=== PATIENT | male | born 1980 | race Two or more races ===

== ENCOUNTER 2021-07-05 07:22 | Emergency (ER) | payer MEDICARE, MEDICAID ==
[~2021-07-05] VITALS: Ht 180.3 cm; Wt 81.6 kg
[~2021-07-05 07:22] MED LIST: LAMO200T2
[2021-07-05] MEDS ORDERED: SODIUM CHLORIDE 0.9% 1,000 ML IVB ONE (08:30)
[2021-07-05] MEDS ORDERED: LORazepam 2MG/ML-1ML VIAL IV ONE (09:15)
[2021-07-05] MEDS ORDERED: LORazepam 2MG/ML-1ML VIAL ONE (09:15)
[2021-07-05 09:36] LABS: Basophils # (auto) 0 10 ^3/uL (0-0.2); Basophils % (auto) 0.4 % (0.0-2.0); Eosinophils # (auto) 0.1 10 ^3/uL (0-0.8); Hematocrit 39.9 % (41.0-53.0); Lymphocytes # (auto) 0.8 10 ^3/uL (0.4-5.4); Lymphocytes % (auto) 13.1 % (10.0-50.0); Mean Corpuscular Hemoglobin 32.6 pg (28.0-32.0); Mean Corpuscular Volume 93.2 fL (80.0-100.0); Monocytes # (auto) 0.5 10 ^3/uL (0-1.3); Monocytes % (auto) 7.7 % (0.0-12.0); Neutrophils # (auto) 4.8 10 ^3/uL (1.6-8.6); Neutrophils % (auto) 77.8 % (37.0-80.0); Red Blood Cells 4.28 10^6/uL (4.5-5.90); Red Cell Distribution Width 12.5 % (11.8-14.3); White Blood Cell 6.1 10^3/uL (4.4-10.8)
[2021-07-05 09:42] LABS: Albumin 3.8 g/dL (3.4-5.0); Magnesium 2.6 mg/dL (1.6-2.6); Potassium 4.2 mmol/L (3.5-5.1)
[2021-07-05 09:47] LABS: BUN/Creatinine Ratio 12.8; Bilirubin, Total 0.3 mg/dL (0.2-1.0); Total Protein 6.5 g/dL (6.4-8.2)
[2021-07-05 16:00] VITALS: BP 10/69
== END 2021-07-05 17:57 | disposition home or self-care (01) ==
LOC: ER 07:22 → EDUNIT# 07:22 → EDBD 07:22 → ER 17:57
DX: G40.909 Epilepsy, unspecified, not intractable, without status epilepticus (principal); R51.9 Headache, unspecified; F17.210 Nicotine dependence, cigarettes, uncomplicated
CPT/HCPCS: 36415; 80053; 83735; 85025; 93005; 96361; 96374; 99285; J2060; J7030

== ENCOUNTER 2022-07-02 08:57 | Emergency (ER) | payer MEDICARE, MEDICAID ==
[~2022-07-02] VITALS: Ht 180.3 cm; Wt 86.0 kg
[2022-07-02 09:25] VITALS: BP 126/89
[2022-07-02] MEDS ORDERED: KETOROLAC TROMETH 60MG/2ML VIAL IM ONE (10:00)
[2022-07-02] MEDS ORDERED: ACET-1080 PO (10:04)
[2022-07-02] MEDS ORDERED: METH750T22 PO (10:04)
== END 2022-07-02 10:29 | disposition home or self-care (01) ==
LOC: ER 08:57
DX: S42.142A Displaced fracture of glenoid cavity of scapula, left shoulder, initial encounter for closed fracture (principal); F17.210 Nicotine dependence, cigarettes, uncomplicated; X58.XXXA Exposure to other specified factors, initial encounter; Y93.89 Activity, other specified; Y92.89 Other specified places as the place of occurrence of the external cause; Y99.8 Other external cause status
CPT/HCPCS: 73030; 96372; 99283; J1885

== ENCOUNTER 2022-07-17 16:14 | Emergency (ER) | payer MEDICARE, MEDICAID ==
[~2022-07-17] VITALS: Ht 180.3 cm; Wt 87.8 kg
[~2022-07-17 16:14] MED LIST changes: +ACET-1080 PO; +METH750T22 PO
[2022-07-17] MEDS ORDERED: TRAM-297 PO (18:39)
[2022-07-17] MEDS ORDERED: CEPH-510 PO (18:39)
[2022-07-17] MEDS ORDERED: ACET325T82 PO (18:41)
[2022-07-17 19:40] VITALS: BP 138/82
== END 2022-07-17 19:51 | disposition home or self-care (01) ==
LOC: ER 16:14
DX: S61.201A Unspecified open wound of left index finger without damage to nail, initial encounter (principal); F17.210 Nicotine dependence, cigarettes, uncomplicated; Z79.899 Other long term (current) drug therapy; W26.0XXA Contact with knife, initial encounter; Y93.89 Activity, other specified; Y92.89 Other specified places as the place of occurrence of the external cause; Y99.8 Other external cause status
CPT/HCPCS: 11730; 12001

== ENCOUNTER 2022-07-26 13:23 | Emergency (ER) | payer MEDICARE, MEDICAID ==
[~2022-07-26] VITALS: Ht 182.9 cm; Wt 78.0 kg
[~2022-07-26 13:23] MED LIST changes: +ACET325T82 PO; +CEPH-510 PO
[2022-07-26] MEDS ORDERED: LORazepam 2MG/ML-1ML VIAL IV ONE (13:30)
[2022-07-26] MEDS ORDERED: ONDANSETRON HCL 4 MG/2 ML VIAL IV ONE (13:30)
[2022-07-26] MEDS ORDERED: MORPHINE SULFATE 4 MG/ML SYR/VIAL IV ONE (13:30)
[2022-07-26 14:19] LABS: Basophils # (auto) 0 10 ^3/uL (0-0.2); Basophils % (auto) 0.2 % (0.0-2.0); Eosinophils # (auto) 0 10 ^3/uL (0-0.8); Eosinophils % (auto) 0.1 % (0.0-7.0); Hematocrit 43.1 % (41.0-53.0); Hemoglobin 15.3 g/dL (13.5-17.5); Lymphocytes # (auto) 0.7 10 ^3/uL (0.4-5.4); Lymphocytes % (auto) 6.5 % (10.0-50.0); Mean Corpuscular Hemoglobin 33.3 pg (28.0-32.0); Mean Corpuscular Hgb Conc. 35.5 g/dL (32.0-36.0); Mean Corpuscular Volume 93.6 fL (80.0-100.0); Monocytes # (auto) 0.5 10 ^3/uL (0-1.3); Neutrophils # (auto) 8.9 10 ^3/uL (1.6-8.6); Neutrophils % (auto) 88.2 % (37.0-80.0); Nucleated Red Blood Cells % 0.1 %; Red Blood Cells 4.61 10^6/uL (4.5-5.90); Red Cell Distribution Width 12.2 % (11.8-14.3); White Blood Cell 10.1 10^3/uL (4.4-10.8)
[2022-07-26 14:24] LABS: Albumin 4.8 g/dL (3.4-5.0); Anion Gap 10 (5-15); Blood Urea Nitrogen 14 mg/dL (7-18); Calcium 9.3 mg/dL (8.5-10.1); Carbon Dioxide 19 mmol/L (21-32); Chloride 109 mmol/L (98-107); Glucose 98 mg/dL (74-106); Potassium 4.5 mmol/L (3.5-5.1); Sodium 138 mmol/L (136-145)
[2022-07-26 14:25] LABS: Alanine Aminotransferase 23 U/L (16-61); Aspartate Aminotransferase 10 U/L (15-37); BUN/Creatinine Ratio 8.7; Blood Alcohol < 3.0 mg/dL (0-5); GFR African American 61 mL/min; GFR Non-African American 51 mL/min
[2022-07-26 14:28] LABS: Alkaline Phosphatase 50 U/L (45-117); Bilirubin, Total 0.5 mg/dL (0.2-1.0); Total Protein 7.9 g/dL (6.4-8.2)
[2022-07-26] MEDS ORDERED: LORA0.5T20 PO (16:27)
[2022-07-26 17:32] VITALS: BP 121/81
== END 2022-07-26 17:35 | disposition home or self-care (01) ==
LOC: ER 13:23 → EDBD 13:23 → ER 17:34
DX: G40.909 Epilepsy, unspecified, not intractable, without status epilepticus (principal); F12.10 Cannabis abuse, uncomplicated
CPT/HCPCS: 36415; 70450; 80053; 80320; 85025; 96374; 96375; 99284; J2060; J2270; J2405

== ENCOUNTER 2022-10-16 09:38 | Emergency (ER) | payer MEDICARE, OTHER ==
[~2022-10-16] VITALS: Ht 177.8 cm; Wt 63.6 kg
[~2022-10-16 09:38] MED LIST changes: +LORA0.5T20 PO
[2022-10-16] MEDS ORDERED: LORazepam 2MG/ML-1ML VIAL ONE (10:22)
[2022-10-16] MEDS ORDERED: SODIUM CHLORIDE 0.9% 500 ML IVB ONE (11:00)
[2022-10-16] MEDS ORDERED: SODIUM CHLORIDE 0.9% 1,000 ML IV ONE (11:00)
[2022-10-16] MEDS ORDERED: LORazepam 2MG/ML-1ML VIAL IV ONE ×4 (11:15→18:00)
[2022-10-16 11:16] LABS: Potassium 3.5 mmol/L (3.5-5.1)
[2022-10-16 11:23] LABS: Albumin 4.9 g/dL (3.4-5.0); BUN/Creatinine Ratio 5.6; Bilirubin, Total 0.2 mg/dL (0.2-1.0); Calcium 9.4 mg/dL (8.5-10.1); Total Protein 8.7 g/dL (6.4-8.2)
[2022-10-16 13:27] LABS: Basophils # (auto) 0 10 ^3/uL (0-0.2); Basophils % (auto) 0.2 % (0.0-2.0); Eosinophils # (auto) 0.2 10 ^3/uL (0-0.8); Hematocrit 48.7 % (41.0-53.0); Hemoglobin 15.8 g/dL (13.5-17.5); Lymphocytes # (auto) 4.4 10 ^3/uL (0.4-5.4); Lymphocytes % (auto) 24.4 % (10.0-50.0); Mean Corpuscular Hemoglobin 32.7 pg (28.0-32.0); Mean Corpuscular Hgb Conc. 32.4 g/dL (32.0-36.0); Mean Corpuscular Volume 100.8 fL (80.0-100.0); Monocytes # (auto) 0.8 10 ^3/uL (0-1.3); Monocytes % (auto) 4.4 % (0.0-12.0); Neutrophils # (auto) 12.5 10 ^3/uL (1.6-8.6); Nucleated Red Blood Cells % 0.1 %; Red Blood Cells 4.84 10^6/uL (4.5-5.90); Red Cell Distribution Width 12.7 % (11.8-14.3); White Blood Cell 17.9 10^3/uL (4.4-10.8)
[2022-10-16 15:44] LABS: Urine Bacteria NONE SEEN /hpf (None Seen); Urine Blood Negative /uL (Negative); Urine Hyaline Cast FEW /lpf (0 - 2); Urine Mucus FEW (None Seen); Urine Specific Gravity 1.012 (1.001-1.035); Urine WBC 1 /hpf (0 - 3)
[2022-10-16 15:57] LABS: Alcohol, Urine < 3.0 mg/dL (0-10); Amphetamine Screen, Urine NEGATIVE (NEGATIVE); Barbiturate Scree,Urine NEGATIVE (NEGATIVE); Benzodiazephine Screen, Urine NEGATIVE (NEGATIVE); Cannabinoid Screen, Urine POSITIVE (NEGATIVE); Cocaine Screen, Urine NEGATIVE (NEGATIVE); Opiate Scree,Urine NEGATIVE (NEGATIVE); Phencyclidine Screen, Urine NEGATIVE (NEGATIVE)
[2022-10-16] MEDS ORDERED: ACETAMINOPHEN 325 MG TAB PO ONE (18:00)
[2022-10-16] MEDS ORDERED: LAMO200T2 PO (18:03)
[2022-10-16] MEDS ORDERED: hydrALAZINE HCL 20 MG/ML VL IV PRN (18:15)
[2022-10-16] MEDS ORDERED: HYDROcodone-ACET 5/325MG TAB PO ONE (21:15)
[2022-10-16] MEDS ORDERED: LACTATED RINGER'S 1,000 ML IV ONE (21:45)
[2022-10-16 23:16] LABS: Basophils # (auto) 0 10 ^3/uL (0-0.2); Basophils % (auto) 0.3 % (0.0-2.0); Eosinophils # (auto) 0 10 ^3/uL (0-0.8); Hematocrit 40.7 % (41.0-53.0); Hemoglobin 13.9 g/dL (13.5-17.5); Lymphocytes # (auto) 0.5 10 ^3/uL (0.4-5.4); Lymphocytes % (auto) 5.4 % (10.0-50.0); Mean Corpuscular Hemoglobin 32.3 pg (28.0-32.0); Mean Corpuscular Hgb Conc. 34.1 g/dL (32.0-36.0); Mean Corpuscular Volume 94.7 fL (80.0-100.0); Monocytes # (auto) 0.4 10 ^3/uL (0-1.3); Monocytes % (auto) 4.5 % (0.0-12.0); Neutrophils # (auto) 8.9 10 ^3/uL (1.6-8.6); Neutrophils % (auto) 89.8 % (37.0-80.0); Red Cell Distribution Width 12.4 % (11.8-14.3); White Blood Cell 9.9 10^3/uL (4.4-10.8)
[2022-10-16 23:24] LABS: Albumin 3.8 g/dL (3.4-5.0); BUN/Creatinine Ratio 8.1; Calcium 8.8 mg/dL (8.5-10.1); Potassium 4.2 mmol/L (3.5-5.1)
[2022-10-16 23:27] LABS: Bilirubin, Total 0.4 mg/dL (0.2-1.0); Total Protein 6.7 g/dL (6.4-8.2)
[2022-10-16 23:36] VITALS: BP 142/96
== END 2022-10-16 23:45 | disposition admitted as inpatient to this hospital (09) ==
LOC: EDBD 09:38 → ER 09:38
DX: G40.801 Other epilepsy, not intractable, with status epilepticus (principal); I10 Essential (primary) hypertension; E11.21 Type 2 diabetes mellitus with diabetic nephropathy; F12.90 Cannabis use, unspecified, uncomplicated; D75.89 Other specified diseases of blood and blood-forming organs
CPT/HCPCS: 36415; 36600; 70450; 70486; 71045; 80053; 80307; 81001; 82805; 82962; 83735; 83880; 85025; 93005; 96361; 96365; 96367; 96375; 99291; J1953; J2060; J7030; J7040; J7060

== ENCOUNTER → 2022-11-22 | Emergency (ER) | payer MEDICARE, OTHER ==
[~2022-11-22] VITALS: Ht 180.3 cm; Wt 83.0 kg
[~2022-11-22] MED LIST changes: +CYCL-839 PO; +IBUP600T28 PO; +KETOROLAC TROMETH 30 MG/ML 1ML VIAL IM ONE; -LAMO200T2; +LAMO200T2 PO; +MORPHINE SULFATE 4 MG/ML SYR/VIAL IM ONE; +ONDANSETRON ODT 4 MG TAB PO ONE
[2022-11-22 14:25] VITALS: BP 148/101
== END | disposition home or self-care (01) ==
LOC: ER 10:23
DX: S46.912A Strain of unspecified muscle, fascia and tendon at shoulder and upper arm level, left arm, initial encounter (principal); Z79.1 Long term (current) use of non-steroidal anti-inflammatories (NSAID); Z79.899 Other long term (current) drug therapy; W18.39XA Other fall on same level, initial encounter; Y93.89 Activity, other specified; Y92.89 Other specified places as the place of occurrence of the external cause; Y99.8 Other external cause status
CPT/HCPCS: 73030; 96372; 99283; J1885; J2270; Q0162

== ENCOUNTER → 2022-12-14 | Day surgery (SDC) | payer MEDICARE, OTHER ==
[~2022-12-14] VITALS: Ht 180.3 cm; Wt 82.0 kg
[~2022-12-14] MED LIST changes: +BUPIVACAINE HCL 50 ML ONE; +EPINEPHrine HCL 1 MG/1 ML AMP ONE; +HYDR1TAB97 PO; +HYDROmorphone HCL 2 MG/ML VL/or syr IV PRN; -KETOROLAC TROMETH 30 MG/ML 1ML VIAL IM ONE; +KETOROLAC TROMETH 30 MG/ML 1ML VIAL IV ONE; +LABETALOL HCL 5 MG/ML 4ML SYRINGE IV PRN; +LIDOCAINE 2% JELLY 11ml (GLYDO) ONE; +MIDAZOLAM HCL 2MG/2ML 2ml VIAL (1mg/ml) IV PRN; -MORPHINE SULFATE 4 MG/ML SYR/VIAL IM ONE; +MORPHINE SULFATE 4 MG/ML SYR/VIAL IV PRN; +ONDANSETRON HCL 4 MG/2 ML VIAL IV PRN; -ONDANSETRON ODT 4 MG TAB PO ONE; +ROCURONIUM 10MG/ML 10ML VIAL IV ONE; +SUCCINYLCHOLINE CHLORIDE 20 MG/ML 10ML VIAL IV ONE; +ceFAZolin 1GM/50ML 100 ML IV ONE; +ePHEDrine SULFATE 50 MG/ML AMP IV PRN
[2022-12-14 10:31] LABS: Basophils # (auto) 0 10 ^3/uL (0-0.2); Basophils % (auto) 0.3 % (0.0-2.0); Eosinophils # (auto) 0.1 10 ^3/uL (0-0.8); Eosinophils % (auto) 0.9 % (0.0-7.0); Hematocrit 41.6 % (41.0-53.0); Hemoglobin 14.4 g/dL (13.5-17.5); Lymphocytes # (auto) 1.3 10 ^3/uL (0.4-5.4); Lymphocytes % (auto) 21.1 % (10.0-50.0); Mean Corpuscular Hemoglobin 32.4 pg (28.0-32.0); Mean Corpuscular Hgb Conc. 34.5 g/dL (32.0-36.0); Mean Corpuscular Volume 93.9 fL (80.0-100.0); Monocytes # (auto) 0.3 10 ^3/uL (0-1.3); Monocytes % (auto) 4.6 % (0.0-12.0); Neutrophils # (auto) 4.4 10 ^3/uL (1.6-8.6); Neutrophils % (auto) 73.1 % (37.0-80.0); Nucleated Red Blood Cells % 0.1 %; Red Blood Cells 4.43 10^6/uL (4.5-5.90); Red Cell Distribution Width 12.5 % (11.8-14.3)
[2022-12-14 10:37] LABS: BUN/Creatinine Ratio 10.7 (10.0-20.0); Calcium 9.5 mg/dL (8.5-10.1); Potassium 4.3 mmol/L (3.5-5.1)
[2022-12-14 10:51] LABS: INR 0.96 (0.9-1.15); Partial Thromboplastin Time 27.3 sec (24.6-33.4)
[2022-12-14 17:50] VITALS: BP 142/100
== END | disposition home or self-care (01) ==
LOC: ER 05:06 → SUR 11:00 → ER 12:36
PROVIDERS: ATTEND Orthopaedic Surgery Sports Medicine
DX: M19.012 Primary osteoarthritis, left shoulder (principal); S43.432A Superior glenoid labrum lesion of left shoulder, initial encounter; M94.212 Chondromalacia, left shoulder; M89.012 Algoneurodystrophy, left shoulder; M67.814 Other specified disorders of tendon, left shoulder; T84.84XA Pain due to internal orthopedic prosthetic devices, implants and grafts, initial encounter; Y83.1 Surgical operation with implant of artificial internal device as the cause of abnormal reaction of the patient, or of later complication, without mention of misadventure at the time of the procedure; Z88.8 Allergy status to other drugs, medicaments and biological substances; Z79.1 Long term (current) use of non-steroidal anti-inflammatories (NSAID); Z79.891 Long term (current) use of opiate analgesic; X58.XXXA Exposure to other specified factors, initial encounter; Y93.89 Activity, other specified; Y92.89 Other specified places as the place of occurrence of the external cause; Y99.8 Other external cause status; Z20.822 Contact with and (suspected) exposure to COVID-19
CPT/HCPCS: 20680; 29823; 36415; 73020; 76000; 80048; 85025; 85610; 85730; 99285; J0330; J0690; J3490; A4565; J0171

== ENCOUNTER 2023-04-08 23:23 | Emergency (ER) | payer MEDICARE, OTHER ==
[~2023-04-08] VITALS: Ht 177.8 cm; Wt 80.0 kg
[~2023-04-08 23:23] MED LIST changes: -BUPIVACAINE HCL 50 ML ONE; -EPINEPHrine HCL 1 MG/1 ML AMP ONE; -HYDROmorphone HCL 2 MG/ML VL/or syr IV PRN; +IBUP1TAB5 PO; -IBUP600T28 PO; -KETOROLAC TROMETH 30 MG/ML 1ML VIAL IV ONE; -LABETALOL HCL 5 MG/ML 4ML SYRINGE IV PRN; -LIDOCAINE 2% JELLY 11ml (GLYDO) ONE; +LORA-1121 PO; -LORA0.5T20 PO; +METH-1182 PO; -METH750T22 PO; -MIDAZOLAM HCL 2MG/2ML 2ml VIAL (1mg/ml) IV PRN; -MORPHINE SULFATE 4 MG/ML SYR/VIAL IV PRN; -ONDANSETRON HCL 4 MG/2 ML VIAL IV PRN; -ROCURONIUM 10MG/ML 10ML VIAL IV ONE; -SUCCINYLCHOLINE CHLORIDE 20 MG/ML 10ML VIAL IV ONE; -ceFAZolin 1GM/50ML 100 ML IV ONE; -ePHEDrine SULFATE 50 MG/ML AMP IV PRN
[2023-04-08 23:41] VITALS: BP 123/96; PULSE 90; RESP 16; O2SAT 99
[2023-04-09 00:06] LABS: Basophils # (auto) 0 10 ^3/uL (0-0.2); Basophils % (auto) 0.7 % (0.0-2.0); Eosinophils # (auto) 0.1 10 ^3/uL (0-0.8); Hemoglobin 14.7 g/dL (13.5-17.5); Lymphocytes # (auto) 3.3 10 ^3/uL (0.4-5.4); Lymphocytes % (auto) 48.6 % (10.0-50.0); Mean Corpuscular Hemoglobin 32.8 pg (28.0-32.0); Mean Corpuscular Volume 93.6 fL (80.0-100.0); Monocytes # (auto) 0.4 10 ^3/uL (0-1.3); Monocytes % (auto) 5.5 % (0.0-12.0); Neutrophils # (auto) 2.9 10 ^3/uL (1.6-8.6); Neutrophils % (auto) 43.2 % (37.0-80.0); Nucleated Red Blood Cells % 0.2 %; Red Blood Cells 4.49 10^6/uL (4.5-5.90); Red Cell Distribution Width 12.8 % (11.8-14.3); White Blood Cell 6.8 10^3/uL (4.4-10.8)
[2023-04-09 00:18] LABS: Albumin 4.6 g/dL (3.4-5.0); Calcium 8.8 mg/dL (8.5-10.1); Potassium 3.7 mmol/L (3.5-5.1)
[2023-04-09 00:21] LABS: Bilirubin, Total 0.4 mg/dL (0.2-1.0); Total Protein 7.7 g/dL (6.4-8.2)
== END 2023-04-09 02:49 | disposition left against medical advice (07) ==
LOC: ER 23:23 → EDBD 23:23 → ER 04-09 02:00
DX: F10.10 Alcohol abuse, uncomplicated (principal); M54.2 Cervicalgia; Z53.21 Procedure and treatment not carried out due to patient leaving prior to being seen by health care provider
CPT/HCPCS: 36415; 70450; 72125; 80053; 80320; 85025

== ENCOUNTER 2023-06-19 09:21 | Emergency (ER) | payer MEDICARE, OTHER ==
[~2023-06-19] VITALS: Ht 177.8 cm; Wt 86.5 kg
[2023-06-19 10:00] VITALS: BP 135/92; PULSE 72; RESP 16; TEMP 98.5; O2SAT 98
[2023-06-19] MEDS ORDERED: DexAMETHasone SOD PHOS 10MG/1ML VIAL INJ IM ONE (10:30)
[2023-06-19] MEDS ORDERED: KETOROLAC TROMETH 30 MG/ML 1ML VIAL IM ONE (10:30)
[2023-06-19] MEDS ORDERED: IBUP1TAB5 PO (11:23)
[2023-06-19] MEDS ORDERED: ACET60TA10 PO (11:23)
== END 2023-06-19 11:35 | disposition home or self-care (01) ==
LOC: ER 09:21
DX: S83.8X1A Sprain of other specified parts of right knee, initial encounter (principal); F15.90 Other stimulant use, unspecified, uncomplicated; Z88.8 Allergy status to other drugs, medicaments and biological substances; Z79.1 Long term (current) use of non-steroidal anti-inflammatories (NSAID); Z79.899 Other long term (current) drug therapy; X50.1XXA Overexertion from prolonged static or awkward postures, initial encounter; Y93.89 Activity, other specified; Y92.89 Other specified places as the place of occurrence of the external cause; Y99.8 Other external cause status
CPT/HCPCS: 73562; 96372; 99284; J1100; J1885

== ENCOUNTER 2023-08-25 08:52 | Emergency (ER) | payer MEDICARE, OTHER ==
[~2023-08-25] VITALS: Ht 180.3 cm; Wt 87.0 kg
[~2023-08-25 08:52] MED LIST changes: +ACET60TA10 PO
[2023-08-25] MEDS ORDERED: LORazepam 2MG/ML-1ML VIAL IV ONE (09:00)
[2023-08-25 09:36] LABS: Basophils # (auto) 0.1 10 ^3/uL (0-0.2); Basophils % (auto) 0.5 % (0.0-2.0); Eosinophils # (auto) 0.1 10 ^3/uL (0-0.8); Eosinophils % (auto) 0.6 % (0.0-7.0); Hematocrit 47.5 % (41.0-53.0); Hemoglobin 15.7 g/dL (13.5-17.5); Lymphocytes % (auto) 25.6 % (10.0-50.0); Mean Corpuscular Hemoglobin 32.3 pg (28.0-32.0); Mean Corpuscular Volume 97.8 fL (80.0-100.0); Monocytes # (auto) 0.6 10 ^3/uL (0-1.3); Monocytes % (auto) 5.1 % (0.0-12.0); Neutrophils # (auto) 7.9 10 ^3/uL (1.6-8.6); Neutrophils % (auto) 68.2 % (37.0-80.0); Nucleated Red Blood Cells % 0.1 %; Red Blood Cells 4.86 10^6/uL (4.5-5.90); Red Cell Distribution Width 12.6 % (11.8-14.3); White Blood Cell 11.6 10^3/uL (4.4-10.8)
[2023-08-25] MEDS ORDERED: LORazepam 2MG/ML-1ML VIAL ONE (09:48)
[2023-08-25 09:55] LABS: Alanine Aminotransferase 22 U/L (7-40); Albumin 5.4 g/dL (3.2-4.8); Alkaline Phosphatase 51 U/L (46-116); Anion Gap 24 (5-15); Aspartate Aminotransferase 11 U/L (13-40); BUN/Creatinine Ratio 7.1 (10.0-20.0); Blood Urea Nitrogen 11 mg/dL (9-23); Calcium 10.2 mg/dL (8.5-10.1); Carbon Dioxide 11 mmol/L (20-30); Chloride 106 mmol/L (98-107); Glucose 117 mg/dL (74-106); Sodium 141 mmol/L (136-145)
[2023-08-25 09:56] LABS: Bilirubin, Total 0.4 mg/dL (0.2-1.0)
[2023-08-25 10:25] VITALS: PULSE 96; RESP 17; O2SAT 97
[2023-08-25 13:58] LABS: Magnesium 2.9 mg/dL (1.6-2.6)
[2023-08-25 14:21] LABS: Urine Bacteria NONE SEEN /hpf (None Seen); Urine Blood Negative /uL (Negative); Urine Clarity Clear (Clear); Urine Protein, UAD Negative (Negative); Urine Specific Gravity 1.012 (1.001-1.035); Urine Urobilinogen Normal (Negative); Urine WBC <1 /hpf (0 - 3)
[2023-08-25 14:24] LABS: Urine Color Yellow (Yellow)
[2023-08-25 14:39] LABS: Amphetamine Screen, Urine Neg (NEGATIVE)
[2023-08-25 14:40] LABS: Barbiturate Scree,Urine Neg (NEGATIVE); Benzodiazephine Screen, Urine Neg (NEGATIVE); Cocaine Screen, Urine Neg (NEGATIVE); Opiate Scree,Urine Neg (NEGATIVE); Phencyclidine Screen, Urine Neg (NEGATIVE)
[2023-08-25 14:41] LABS: Cannabinoid Screen, Urine Pos (NEGATIVE)
[2023-08-25 15:29] LABS: Base Excess -7.6 mmol/L (-2.0-2.0)
[2023-08-25] MEDS ORDERED: ACETAMINOPHEN 325 MG TAB PO ONE (16:15)
[2023-08-25 19:45] VITALS: PULSE 98; RESP 20; O2SAT 98
[2023-08-25] MEDS ORDERED: levETIRAcetam 500 MG TAB PO ONE (19:45)
[2023-08-25] MEDS ORDERED: ONDANSETRON ODT 4 MG TAB PO ONE (19:45)
[2023-08-25] MEDS ORDERED: HYDROcodone-ACET 10/325MG TAB PO ONE (19:45)
[2023-08-26] MEDS ORDERED: KEP500T PO (00:49)
[2023-08-26] MEDS ORDERED: LAMO200T2 PO (00:49)
[2023-08-26] MEDS ORDERED: LORA-1121 PO (00:49)
[2023-08-26 02:00] VITALS: BP 120/77; PULSE 98; RESP 16; O2SAT 100
== END 2023-08-26 02:25 | disposition home or self-care (01) ==
LOC: EDBD 08:52 → ER 08:52
DX: G40.909 Epilepsy, unspecified, not intractable, without status epilepticus (principal); E87.20 Acidosis, unspecified; F12.10 Cannabis abuse, uncomplicated; N18.9 Chronic kidney disease, unspecified
CPT/HCPCS: 36415; 36600; 70450; 80053; 80307; 81001; 82805; 83735; 85025; 96374; 99285; J2060; J7030

== ENCOUNTER 2023-09-25 09:01 | Emergency (ER) | payer MEDICARE, OTHER ==
[~2023-09-25] VITALS: Ht 180.3 cm; Wt 88.9 kg
[~2023-09-25 09:01] MED LIST changes: +KEP500T PO
[2023-09-25] MEDS ORDERED: LEVE500T40 PO (10:11)
[2023-09-25 10:17] VITALS: BP 127/86; PULSE 74; RESP 18; TEMP 97.7; O2SAT 95
== END 2023-09-25 10:11 | disposition home or self-care (01) ==
LOC: ER 09:01
DX: G40.909 Epilepsy, unspecified, not intractable, without status epilepticus (principal); Z76.0 Encounter for issue of repeat prescription

== ENCOUNTER 2023-10-26 10:43 | Emergency (ER) | payer MEDICARE, OTHER ==
[~2023-10-26] VITALS: Ht 182.9 cm; Wt 86.4 kg
[~2023-10-26 10:43] MED LIST changes: +LEVE500T40 PO
[2023-10-26 11:12] VITALS: BP 121/88; PULSE 78; RESP 16; TEMP 98; O2SAT 97
[2023-10-26] MEDS ORDERED: levETIRAcetam 500 MG TAB PO ONE (11:45)
[2023-10-26] MEDS ORDERED: KEP500T PO (11:46)
== END 2023-10-26 12:10 | disposition home or self-care (01) ==
LOC: ER 10:43
DX: R56.9 Unspecified convulsions (principal); F15.90 Other stimulant use, unspecified, uncomplicated; Z76.0 Encounter for issue of repeat prescription; Z79.899 Other long term (current) drug therapy; Z88.8 Allergy status to other drugs, medicaments and biological substances

== ENCOUNTER 2023-11-29 07:36 | Inpatient (IN) | payer MEDICARE, OTHER ==
[~2023-11-29] VITALS: Ht 180.3 cm; Wt 81.8 kg
[2023-11-29 08:00] VITALS: PULSE 109; RESP 16; O2SAT 96
[2023-11-29 08:15] LABS: Basophils # (auto) 0.1 10 ^3/uL (0-0.2); Basophils % (auto) 0.6 % (0.0-2.0); Eosinophils # (auto) 0.2 10 ^3/uL (0-0.8); Eosinophils % (auto) 1.8 % (0.0-7.0); Hemoglobin 15.5 g/dL (13.5-17.5); Lymphocytes # (auto) 3.1 10 ^3/uL (0.4-5.4); Lymphocytes % (auto) 30.2 % (10.0-50.0); Mean Corpuscular Volume 97.2 fL (80.0-100.0); Monocytes # (auto) 0.5 10 ^3/uL (0-1.3); Monocytes % (auto) 4.7 % (0.0-12.0); Neutrophils # (auto) 6.4 10 ^3/uL (1.6-8.6); Neutrophils % (auto) 62.7 % (37.0-80.0); Red Blood Cells 4.84 10^6/uL (4.5-5.90); Red Cell Distribution Width 12.8 % (11.8-14.3); White Blood Cell 10.1 10^3/uL (4.4-10.8)
[2023-11-29] MEDS: SODIUM CHLORIDE 0.9% 1,000 ML IV ONE (08:15)
[2023-11-29 08:23] LABS: Chloride 108 mmol/L (98-107); Potassium 4.9 mmol/L (3.5-5.1); Sodium 139 mmol/L (136-145)
[2023-11-29 08:29] LABS: BUN/Creatinine Ratio 8.4 (10.0-20.0); Blood Urea Nitrogen 12 mg/dL (9-23); Glucose 128 mg/dL (74-106)
[2023-11-29] MEDS: levETIRAcetam 1000 mg/100ml 100 ML IV ONE (08:33)
[2023-11-29] MEDS: MORPHINE SULFATE INJ 2 MG/ml SYRG IV ONE ×2 (08:34→12:49)
[2023-11-29] MEDS: ONDANSETRON HCL 4 MG/2 ML VIAL IV ONE (08:34)
[2023-11-29 09:05] LABS: Anion Gap 19 (5-15); Carbon Dioxide 12 mmol/L (20-30)
[2023-11-29] MEDS ORDERED: MORPHINE SULFATE INJ 2 MG/ml SYRG IV PRN (12:00)
[2023-11-29] MEDS ORDERED: DOCUSATE SOD 100 MG CAP PO PRN (12:00)
[2023-11-29] MEDS ORDERED: ONDANSETRON HCL 4 MG/2 ML VIAL IV PRN (12:00)
[2023-11-29] MEDS: SODIUM CHLORIDE 0.9% 1,000 ML IV SCH (13:41)
[2023-11-29] MEDS: ACETAMINOPHEN 325 MG TAB PO ONE (16:49)
[2023-11-29] MEDS: LORazepam 2MG/ML-1ML VIAL IV PRN (16:58)
[2023-11-29 19:30] VITALS: PULSE 78; RESP 16; O2SAT 97
[2023-11-29] MEDS: levETIRAcetam 1000 mg/100ml 100 ML IV SCH (21:42)
[2023-11-29] MEDS ORDERED: LORazepam 2MG/ML-1ML VIAL IV PRN (23:30)
[2023-11-30 00:40] VITALS: BP 135/94; PULSE 82; RESP 20; TEMP 98.5; O2SAT 97
[2023-11-30 05:00] VITALS: BP 128/82; PULSE 84; RESP 18; TEMP 97.9; O2SAT 97
[2023-11-30 06:21] LABS: Basophils # (auto) 0 10 ^3/uL (0-0.2); Basophils % (auto) 0.3 % (0.0-2.0); Eosinophils # (auto) 0 10 ^3/uL (0-0.8); Eosinophils % (auto) 0.5 % (0.0-7.0); Hematocrit 38.9 % (41.0-53.0); Hemoglobin 13.6 g/dL (13.5-17.5); Lymphocytes # (auto) 1.8 10 ^3/uL (0.4-5.4); Lymphocytes % (auto) 23.8 % (10.0-50.0); Mean Corpuscular Hemoglobin 32.4 pg (28.0-32.0); Mean Corpuscular Hgb Conc. 34.9 g/dL (32.0-36.0); Mean Corpuscular Volume 92.9 fL (80.0-100.0); Monocytes # (auto) 0.4 10 ^3/uL (0-1.3); Monocytes % (auto) 5.3 % (0.0-12.0); Neutrophils # (auto) 5.2 10 ^3/uL (1.6-8.6); Neutrophils % (auto) 70.1 % (37.0-80.0); Red Blood Cells 4.19 10^6/uL (4.5-5.90); Red Cell Distribution Width 12.5 % (11.8-14.3); White Blood Cell 7.4 10^3/uL (4.4-10.8)
[2023-11-30 06:36] LABS: Albumin 4.4 g/dL (3.2-4.8); Alkaline Phosphatase 42 U/L (46-116); Anion Gap 7 (5-15); Aspartate Aminotransferase < 8 U/L (13-40); BUN/Creatinine Ratio 8.2 (10.0-20.0); Bilirubin, Total 0.7 mg/dL (0.2-1.0); Blood Urea Nitrogen 8 mg/dL (9-23); Calcium 9.2 mg/dL (8.5-10.1); Carbon Dioxide 21 mmol/L (20-30); Chloride 110 mmol/L (98-107); Glucose 88 mg/dL (74-106); Potassium 3.9 mmol/L (3.5-5.1); Sodium 138 mmol/L (136-145); Total Protein 6.2 g/dL (5.7-8.2)
[2023-11-30 06:47] LABS: Alanine Aminotransferase < 9 U/L (7-40)
[2023-11-30] MEDS ORDERED: LEVE500T40 PO (07:30)
[2023-11-30] MEDS ORDERED: LAMO200T2 PO (07:30)
[2023-11-30 08:30] VITALS: BP 114/77; PULSE 87; RESP 17; TEMP 98.5; O2SAT 96
[2023-11-30] MEDS: levETIRAcetam 500 MG TAB PO SCH (09:53)
[2023-11-30] MEDS: lamoTRIgine 100 MG TAB PO SCH (09:53)
[2023-11-30 10:19] VITALS: BP 114/77; PULSE 87; RESP 17; TEMP 98.5; O2SAT 96
[2023-11-30 12:20] VITALS: TEMP 36.9
[2023-11-30 12:30] VITALS: BP 147/89; PULSE 89; RESP 17; TEMP 98.2; O2SAT 95
[2023-12-01] MEDS ORDERED: LEVE500T40 PO (08:42)
== END 2023-11-30 15:57 | disposition left against medical advice (07) | DRG 100 ==
LOC: EDBD 07:36 → ER 07:36 → OVERFLOW 11:55 → CENTRAL 23:54
PROVIDERS: ADMIT Internal Medicine; ATTEND Internal Medicine
DX: G40.409 Other generalized epilepsy and epileptic syndromes, not intractable, without status epilepticus (principal); N17.0 Acute kidney failure with tubular necrosis; Z79.899 Other long term (current) drug therapy; Z53.29 Procedure and treatment not carried out because of patient's decision for other reasons
CPT/HCPCS: 36415; 70450; 80048; 80053; 85025; 96361; 96365; 96366; 96375; 96376; 99291; G0378; J2405

== ENCOUNTER 2023-12-01 08:18 | Emergency (ER) | payer MEDICARE, OTHER ==
[~2023-12-01] VITALS: Ht 348 cm; Wt 82.0 kg
[~2023-12-01 08:18] MED LIST changes: -ACET325T82 PO; -CEPH-510 PO; -KEP500T PO
[2023-12-01 08:39] VITALS: BP 134/94; PULSE 90; RESP 18; TEMP 98; O2SAT 98
[2023-12-01] MEDS ORDERED: LEVE500T40 PO (08:42)
[2023-12-01] MEDS: levETIRAcetam 500 MG TAB PO ONE (08:48)
== END 2023-12-01 09:12 | disposition home or self-care (01) ==
LOC: ER 08:18
DX: R56.9 Unspecified convulsions (principal); F12.10 Cannabis abuse, uncomplicated; Z76.0 Encounter for issue of repeat prescription; Z88.6 Allergy status to analgesic agent

== ENCOUNTER 2024-02-02 08:17 | Inpatient (IN) | payer MEDICARE, MEDICAID ==
[~2024-02-02] VITALS: Ht 180.3 cm; Wt 80.4 kg
[2024-02-02 09:00] VITALS: PULSE 74; RESP 12; O2SAT 99
[2024-02-02] MEDS: levETIRAcetam 1000 mg/100ml 100 ML IV ONE (10:19)
[2024-02-02] MEDS: lamoTRIgine 100 MG TAB PO ONE (10:20)
[2024-02-02] MEDS: HYDROcodone-ACET 5/325MG TAB PO ONE (10:20)
[2024-02-02 10:27] LABS: Basophils # (auto) 0 10 ^3/uL (0-0.2); Basophils % (auto) 0.5 % (0.0-2.0); Eosinophils # (auto) 0.1 10 ^3/uL (0-0.8); Eosinophils % (auto) 1.8 % (0.0-7.0); Hematocrit 43.1 % (41.0-53.0); Lymphocytes # (auto) 1.8 10 ^3/uL (0.4-5.4); Lymphocytes % (auto) 31.1 % (10.0-50.0); Mean Corpuscular Hemoglobin 32.4 pg (28.0-32.0); Mean Corpuscular Hgb Conc. 34.7 g/dL (32.0-36.0); Mean Corpuscular Volume 93.2 fL (80.0-100.0); Monocytes # (auto) 0.4 10 ^3/uL (0-1.3); Monocytes % (auto) 6.8 % (0.0-12.0); Neutrophils # (auto) 3.5 10 ^3/uL (1.6-8.6); Neutrophils % (auto) 59.8 % (37.0-80.0); Nucleated Red Blood Cells % 0.1 %; Red Blood Cells 4.63 10^6/uL (4.5-5.90); Red Cell Distribution Width 12.7 % (11.8-14.3); White Blood Cell 5.8 10^3/uL (4.4-10.8)
[2024-02-02 10:31] LABS: Anion Gap 7 (5-15); Carbon Dioxide 25 mmol/L (20-30); Chloride 107 mmol/L (98-107); Sodium 139 mmol/L (136-145)
[2024-02-02 10:32] LABS: Calcium 10.4 mg/dL (8.5-10.1)
[2024-02-02 10:36] LABS: Glucose 99 mg/dL (74-106)
[2024-02-02 10:37] LABS: BUN/Creatinine Ratio 6.7 (10.0-20.0); Blood Urea Nitrogen 8 mg/dL (9-23)
[2024-02-02] MEDS ORDERED: ONDANSETRON HCL 4 MG/2 ML VIAL IV PRN (11:15)
[2024-02-02] MEDS ORDERED: LORazepam 2MG/ML-1ML VIAL IV PRN (11:15)
[2024-02-02] MEDS: SODIUM CHLORIDE 0.9% 1,000 ML IV SCH (11:39)
[2024-02-02 14:28] VITALS: BP 155/96; PULSE 69; RESP 18; TEMP 98.7; O2SAT 99
[2024-02-02 14:36] VITALS: PULSE 69; RESP 18; O2SAT 99
[2024-02-02] MEDS: MORPHINE SULFATE INJ 2 MG/ml SYRG IV PRN (15:11)
[2024-02-02 15:59] VITALS: BP 129/92; PULSE 66; RESP 18; TEMP 97.9; O2SAT 97
[2024-02-02 20:28] LABS: Urine Bacteria None Seen /hpf (None Seen); Urine Blood Negative /uL (Negative); Urine Clarity Clear (Clear); Urine Color Light-Yellow (Yellow); Urine Protein, UAD Negative (Negative); Urine Urobilinogen Normal (Negative); Urine WBC None Seen /hpf (0 - 3)
[2024-02-02 20:41] LABS: Amphetamine Screen, Urine Neg (NEGATIVE)
[2024-02-02 20:42] LABS: Barbiturate Scree,Urine Neg (NEGATIVE); Benzodiazephine Screen, Urine Neg (NEGATIVE); Cocaine Screen, Urine Neg (NEGATIVE); Opiate Scree,Urine Neg (NEGATIVE)
[2024-02-02 20:43] LABS: Cannabinoid Screen, Urine Pos (NEGATIVE); Phencyclidine Screen, Urine Neg (NEGATIVE)
[2024-02-02] MEDS: lamoTRIgine 100 MG TAB PO SCH (21:52)
[2024-02-02 22:00] VITALS: BP 126/83; PULSE 68; RESP 17; TEMP 98.4; O2SAT 97
[2024-02-02] MEDS ORDERED: LAMOTRIGINE 200 MG PO SCH (22:00)
[2024-02-02] MEDS: levETIRAcetam 1000 mg/100ml 100 ML IV SCH (22:09)
[2024-02-03] VITALS (7 sets, daily range): BP systolic 112–157; BP diastolic 65–101; PULSE 64–81; RESP 16–20; TEMP 97.7–98.7; O2SAT 95–100
[2024-02-03 06:04] LABS: Basophils # (auto) 0 10 ^3/uL (0-0.2); Basophils % (auto) 0.5 % (0.0-2.0); Eosinophils # (auto) 0.2 10 ^3/uL (0-0.8); Eosinophils % (auto) 2.7 % (0.0-7.0); Hematocrit 41.4 % (41.0-53.0); Hemoglobin 14.3 g/dL (13.5-17.5); Lymphocytes # (auto) 1.9 10 ^3/uL (0.4-5.4); Lymphocytes % (auto) 32.3 % (10.0-50.0); Mean Corpuscular Hemoglobin 32.5 pg (28.0-32.0); Mean Corpuscular Hgb Conc. 34.4 g/dL (32.0-36.0); Mean Corpuscular Volume 94.5 fL (80.0-100.0); Monocytes # (auto) 0.4 10 ^3/uL (0-1.3); Monocytes % (auto) 7.4 % (0.0-12.0); Neutrophils # (auto) 3.3 10 ^3/uL (1.6-8.6); Neutrophils % (auto) 57.1 % (37.0-80.0); Red Blood Cells 4.39 10^6/uL (4.5-5.90); Red Cell Distribution Width 12.8 % (11.8-14.3); White Blood Cell 5.7 10^3/uL (4.4-10.8)
[2024-02-03 06:26] LABS: Alanine Aminotransferase 13 U/L (7-40); Albumin 4.4 g/dL (3.2-4.8); Alkaline Phosphatase 44 U/L (46-116); Anion Gap 8 (5-15); Aspartate Aminotransferase 10 U/L (13-40); BUN/Creatinine Ratio 5.2 (10.0-20.0); Bilirubin, Total 0.8 mg/dL (0.2-1.0); Blood Urea Nitrogen 6 mg/dL (9-23); Calcium 9.7 mg/dL (8.5-10.1); Carbon Dioxide 24 mmol/L (20-30); Chloride 108 mmol/L (98-107); Glucose 89 mg/dL (74-106); Potassium 4.1 mmol/L (3.5-5.1); Sodium 140 mmol/L (136-145); Total Protein 6.7 g/dL (5.7-8.2)
[2024-02-03] MEDS: ACETAMINOPHEN/CODEINE#3 (300/30mg) TAB PO PRN (14:42)
[2024-02-04 00:54] VITALS: BP 105/62; PULSE 70; RESP 17; TEMP 98.2; O2SAT 93
[2024-02-04 05:00] VITALS: BP 105/69; PULSE 63; RESP 18; TEMP 97.5; O2SAT 100
[2024-02-04] MEDS ORDERED: LEVE500T40 PO (08:12)
[2024-02-04] MEDS ORDERED: LAMO200T34 PO (08:12)
[2024-02-04] MEDS ORDERED: ACE3T PO (08:12)
[2024-02-04 09:00] VITALS: BP 137/94; PULSE 75; RESP 20; TEMP 98.6; O2SAT 99
[2024-02-04] MEDS: levETIRAcetam 500 MG TAB PO SCH (10:23)
== END 2024-02-04 10:38 | disposition home or self-care (01) | DRG 101 ==
LOC: ER 08:17 → OVERFLOW 12:26 → CENTRAL 14:32
PROVIDERS: ADMIT Nurse Practitioner Family; ATTEND Family Medicine
DX: G40.401 Other generalized epilepsy and epileptic syndromes, not intractable, with status epilepticus (principal); S09.8XXA Other specified injuries of head, initial encounter; Z79.899 Other long term (current) drug therapy; Z83.3 Family history of diabetes mellitus; Z82.49 Family history of ischemic heart disease and other diseases of the circulatory system; Z91.199 Patient's noncompliance with other medical treatment and regimen due to unspecified reason; X58.XXXA Exposure to other specified factors, initial encounter; Y93.89 Activity, other specified; Y92.89 Other specified places as the place of occurrence of the external cause; Y99.8 Other external cause status
CPT/HCPCS: 36415; 70450; 80048; 80053; 80307; 81001; 82962; 85025; 93005; G0378

== ENCOUNTER 2024-02-13 11:05 | Emergency (ER) | payer MEDICARE, MEDICAID ==
[~2024-02-13] VITALS: Ht 180.3 cm; Wt 80.9 kg
[~2024-02-13 11:05] MED LIST changes: +ACE3T PO; +LAMO200T34 PO
[2024-02-13 13:00] VITALS: BP 132/82; PULSE 82; RESP 16; TEMP 98.6; O2SAT 98
[2024-02-13] MEDS ORDERED: MELO7.5T7 PO (13:24)
[2024-02-13] MEDS: methylPREDNISolone SOD SUCC 125 MG/2 ML VL IM ONE (13:35)
[2024-02-13] MEDS: KETOROLAC TROMETH 60MG/2ML VIAL IM ONE (13:35)
== END 2024-02-13 13:41 | disposition home or self-care (01) ==
LOC: ER 11:05
DX: M79.18 Myalgia, other site (principal); M54.50 Low back pain, unspecified; M54.9 Dorsalgia, unspecified
CPT/HCPCS: 72100; 96372; 99284; J1885; J2919

== ENCOUNTER 2024-03-30 11:44 | Emergency (ER) | payer MEDICARE, MEDICAID ==
[~2024-03-30] VITALS: Ht 182.9 cm; Wt 81.8 kg
[~2024-03-30 11:44] MED LIST changes: +MELO7.5T7 PO
[2024-03-30 12:07] VITALS: PULSE 88; RESP 20; TEMP 98.4; O2SAT 100
[2024-03-30] MEDS: SODIUM CHLORIDE 0.9% 1,000 ML IV ONE (12:38)
[2024-03-30] MEDS: METOCLOPRAMIDE HCL 5MG/ml INJ 2ml VIAL IV ONE (12:38)
[2024-03-30] MEDS: levETIRAcetam 1000 mg/100ml 100 ML IV ONE (12:38)
[2024-03-30] MEDS: KETOROLAC TROMETH 30 MG/ML 1ML VIAL IV ONE (12:38)
[2024-03-30 16:00] VITALS: BP 108/68; PULSE 76; RESP 12; O2SAT 98
== END 2024-03-30 16:24 | disposition home or self-care (01) ==
LOC: ER 11:44 → EDBD 11:44 → EDUNIT# 11:44 → ER 16:24
DX: G40.909 Epilepsy, unspecified, not intractable, without status epilepticus (principal); R51.9 Headache, unspecified; F12.10 Cannabis abuse, uncomplicated; Z91.148 Patient's other noncompliance with medication regimen for other reason
CPT/HCPCS: 96365; 96375; 99284; J1885; J1953; J2765; J7030

== ENCOUNTER 2024-07-04 11:38 | Emergency (ER) | payer MEDICARE, MEDICAID ==
[~2024-07-04] VITALS: Ht 180.3 cm; Wt 80.0 kg
[2024-07-04] MEDS: lamoTRIgine 100 MG TAB PO ONE (12:08)
[2024-07-04 12:11] VITALS: BP 108/77; TEMP 98.3
[2024-07-04] MEDS: SODIUM CHLORIDE 0.9% 1,000 ML IV ONE (12:24)
[2024-07-04] MEDS: KETOROLAC TROMETH 30 MG/ML 1ML VIAL IV ONE (12:24)
[2024-07-04] MEDS: LORazepam 2MG/ML-1ML VIAL IV ONE (12:24)
[2024-07-04 12:30] LABS: Basophils # (auto) 0 10 ^3/uL (0-0.2); Basophils % (auto) 0.4 % (0.0-2.0); Eosinophils # (auto) 0.2 10 ^3/uL (0-0.8); Hematocrit 45.4 % (41.0-53.0); Hemoglobin 15.8 g/dL (13.5-17.5); Lymphocytes # (auto) 2.4 10 ^3/uL (0.4-5.4); Lymphocytes % (auto) 31.9 % (10.0-50.0); Mean Corpuscular Hemoglobin 32.7 pg (28.0-32.0); Mean Corpuscular Hgb Conc. 34.8 g/dL (32.0-36.0); Mean Corpuscular Volume 93.9 fL (80.0-100.0); Monocytes # (auto) 0.4 10 ^3/uL (0-1.3); Monocytes % (auto) 5.6 % (0.0-12.0); Neutrophils # (auto) 4.6 10 ^3/uL (1.6-8.6); Neutrophils % (auto) 60.1 % (37.0-80.0); Nucleated Red Blood Cells % 0.1 %; Platelet Count (auto) 309 10^3/uL (140-450); Red Blood Cells 4.84 10^6/uL (4.5-5.90); Red Cell Distribution Width 12.4 % (11.8-14.3); White Blood Cell 7.6 10^3/uL (4.4-10.8)
[2024-07-04 12:35] LABS: Chloride 108 mmol/L (98-107); Potassium 4.3 mmol/L (3.5-5.1); Sodium 140 mmol/L (136-145)
[2024-07-04 12:36] LABS: Anion Gap 4 (5-15); Carbon Dioxide 28 mmol/L (20-31)
[2024-07-04 12:37] LABS: Calcium 10.3 mg/dL (8.7-10.4)
[2024-07-04 12:41] LABS: BUN/Creatinine Ratio 9.1 (10.0-20.0); Blood Urea Nitrogen 11 mg/dL (9-23); Glucose 122 mg/dL (74-106)
[2024-07-04 12:44] VITALS: PULSE 79; RESP 16; O2SAT 96
[2024-07-04 13:03] LABS: Urine Bacteria None Seen /hpf (None Seen)
[2024-07-04 13:19] LABS: Urine Blood Negative /uL (Negative); Urine Clarity Clear (Clear); Urine Color Yellow (Yellow); Urine Protein, UAD Negative (Negative); Urine Specific Gravity 1.017 (1.001-1.035); Urine Urobilinogen Normal (Negative); Urine WBC 1 /hpf (0 - 3)
[2024-07-04] MEDS ORDERED: LAMO200T2 PO (13:58)
== END 2024-07-04 14:08 | disposition home or self-care (01) ==
LOC: ER 11:38
DX: G40.909 Epilepsy, unspecified, not intractable, without status epilepticus (principal); F12.10 Cannabis abuse, uncomplicated
CPT/HCPCS: 36415; 80048; 81001; 85025; 96361; 96374; 96375; 99284; J1885; J2060; J7030

== ENCOUNTER → 2024-08-02 | Outpatient (CLI) | payer MEDICARE, MEDICAID ==
[2024-08-02 09:40] LABS: Urine Bacteria None Seen /hpf (None Seen)
[2024-08-02 10:49] LABS: Basophils # (auto) 0 10 ^3/uL (0-0.2); Basophils % (auto) 0.6 % (0.0-2.0); Eosinophils # (auto) 0.1 10 ^3/uL (0-0.8); Eosinophils % (auto) 1.8 % (0.0-7.0); Hemoglobin 15.2 g/dL (13.5-17.5); Lymphocytes # (auto) 1.8 10 ^3/uL (0.4-5.4); Lymphocytes % (auto) 26.8 % (10.0-50.0); Mean Corpuscular Hemoglobin 33.4 pg (28.0-32.0); Mean Corpuscular Hgb Conc. 35.2 g/dL (32.0-36.0); Mean Corpuscular Volume 94.9 fL (80.0-100.0); Monocytes # (auto) 0.4 10 ^3/uL (0-1.3); Monocytes % (auto) 6.6 % (0.0-12.0); Neutrophils # (auto) 4.3 10 ^3/uL (1.6-8.6); Neutrophils % (auto) 64.2 % (37.0-80.0); Nucleated Red Blood Cells % 0.1 %; Platelet Count (auto) 273 10^3/uL (140-450); Red Blood Cells 4.53 10^6/uL (4.5-5.90); Red Cell Distribution Width 12.5 % (11.8-14.3); Urine Blood Negative /uL (Negative); Urine Clarity Clear (Clear); Urine Color Yellow (Yellow); Urine Mucus FEW (None Seen); Urine Protein, UAD TRACE (Negative); Urine Specific Gravity 1.023 (1.001-1.035); Urine Urobilinogen 2 mg/dL (Negative); Urine WBC <1 /hpf (0 - 3); Urine pH 6.5 (5.0-9.0); White Blood Cell 6.6 10^3/uL (4.4-10.8)
[2024-08-02 10:50] LABS: Alanine Aminotransferase 13 U/L (7-40); Albumin 4.3 g/dL (3.2-4.8); Alkaline Phosphatase 39 U/L (46-116); Anion Gap 4 (5-15); Aspartate Aminotransferase < 8 U/L (13-40); BUN/Creatinine Ratio 6.8 (10.0-20.0); Blood Urea Nitrogen 9 mg/dL (9-23); Carbon Dioxide 30 mmol/L (20-31); Chloride 107 mmol/L (98-107); Cholesterol 213 mg/dL (< 200); Glucose 98 mg/dL (74-106); HDL Cholesterol 47 mg/dL (40-59); LDL Cholesterol 119 mg/dL (< 100); Potassium 4.4 mmol/L (3.5-5.1); Sodium 141 mmol/L (136-145); Triglycerides 195 mg/dL (< 150)
[2024-08-02 10:51] LABS: Bilirubin, Total 0.5 mg/dL (0.2-1.0); Total Protein 6.3 g/dL (5.7-8.2)
== END | disposition home or self-care (01) ==
LOC: LAB 09:26
PROVIDERS: ATTEND Internal Medicine
DX: G40.909 Epilepsy, unspecified, not intractable, without status epilepticus (principal); F12.90 Cannabis use, unspecified, uncomplicated; J06.9 Acute upper respiratory infection, unspecified; Z79.899 Other long term (current) drug therapy
CPT/HCPCS: 36415; 80053; 80061; 81001; 83036; 84439; 84443; 85025